=== PATIENT | female | born 1945 | race Caucasian/White ===

== ENCOUNTER → 2023-11-02 14:43 | Outpatient (REF) | payer MEDICARE, SELFPAY | LOC: RAD 14:43 | PROVIDERS: ATTENDING PHYSICIAN Nurse Practitioner Family | DX: T14.90XA Injury, unspecified, initial encounter (principal); W19.XXXA Unspecified fall, initial encounter; M51.36 Other intervertebral disc degeneration, lumbar region; M51.37 Other intervertebral disc degeneration, lumbosacral region; R29.6 Repeated falls; M25.521 Pain in right elbow; M17.12 Unilateral primary osteoarthritis, left knee; M11.262 Other chondrocalcinosis, left knee | CPT/HCPCS: 72110; 73080; 73564 ==

== ENCOUNTER → 2025-03-16 09:38 | Outpatient (REF) | payer MEDICARE, OTHER, SELFPAY | LOC: RAD 09:38 | PROVIDERS: ATTENDING PHYSICIAN Nurse Practitioner Family | DX: R14.0 Abdominal distension (gaseous) (principal) | CPT/HCPCS: 76700 ==